=== PATIENT | female | born 1945 | race Caucasian/White ===

== ENCOUNTER → 2020-10-06 | Outpatient (CLI) | payer MEDICARE, OTHER | LOC: KOH-I 11:52 | DX: S32.019A Unspecified fracture of first lumbar vertebra, initial encounter for closed fracture (principal); S22.41XA Multiple fractures of ribs, right side, initial encounter for closed fracture; T14.8XXA Other injury of unspecified body region, initial encounter; M54.2 Cervicalgia; M43.16 Spondylolisthesis, lumbar region; W19.XXXA Unspecified fall, initial encounter | CPT/HCPCS: 71045; 71111; 72050; 72110; 72131 ==

== ENCOUNTER → 2021-03-16 | Outpatient (CLI) | payer MEDICARE, OTHER | LOC: MAMO 02-22 10:00 → EXRD 02-22 11:30 → MAMO 09:58 | DX: Z12.31 Encounter for screening mammogram for malignant neoplasm of breast (principal) | CPT/HCPCS: 77063; 77067 ==